=== PATIENT | female | born 1955 | race Caucasian/White ===

== ENCOUNTER 2020-06-19 10:35 | Observation (INO) ==
[2020-06-19 11:07] LABS: Basophils # 0.1 K/mcL (0.0-0.2); Basophils % 0.7 %; Eosinophils # 0.2 K/mcL (0.0-0.6); Eosinophils % 3.2 %; Hematocrit 41.2 % (35.3-44.9); Hemoglobin 13.1 g/dL (11.5-15.4); Immature Granulocytes % 0.1 % (0-4); Lymphocytes # 2.2 K/mcL (0.6-4.6); Lymphocytes % 31.5 %; Mean Corpuscular HGB Conc 31.8 g/dL (31.6-35.5); Mean Corpuscular Hemoglobin 28.7 pg (28.0-33.3); Mean Corpuscular Volume 90.4 fL (83.0-100.0); Mean Platelet Volume 9.7 fL (9.4-12.4); Monocytes # 0.5 K/mcL (0.0-1.3); Platelet Count 268 K/mcL (140-400); Red Blood Count 4.56 M/mcL (3.82-4.97); Red Cell Distribution Width 13.9 % (11.5-14.5); Segmented Neutrophils % 57.5 %; White Blood Count 6.9 K/mcL (4.3-11.1)
[2020-06-19 11:37] LABS: BUN/Creatinine Ratio 14 (6-26); Blood Urea Nitrogen 14 mg/dL (8-23); Carbon Dioxide 23 mEq/L (23-29); Chloride 102 mEq/L (98-107); Glucose 216 mg/dL (70-105); Osmolality,Calculated 289 (280-300); Potassium 4.3 mEq/L (3.5-5.1); Sodium 136 mEq/L (136-145); Troponin I < 0.03 ng/mL (< 0.04); eGFR For African Americans > 60 (> 60); eGFR For Non-African Americans 58 (> 60)
[2020-06-19] MEDS ORDERED: Isovue-370 500 ML BOTTLE IVP ONE (11:54)
[2020-06-19] MEDS ORDERED: Famotidine 20 MG/2 ML VIAL IVP ONE (11:54)
[2020-06-19] MEDS ORDERED: Aspirin 325 MG TABLET PO ONE (15:30)
[2020-06-19] MEDS ORDERED: Naloxone 0.4 MG/ML INJ IVP PRN (15:43)
[2020-06-19] MEDS ORDERED: Perflutren Lipid Microsphere 1.3 ML in 0.9 % Sodium Chloride 8.7 ML IVP PRN (15:46)
[2020-06-19] MEDS ORDERED: Ondansetron 4 MG/2 ML VIAL IVP PRN ×2 (15:47→17:22)
[2020-06-19] MEDS ORDERED: Nitroglycerin 0.4 MG TAB.SUBL SL PRN ×2 (15:47→17:22)
[2020-06-19] MEDS ORDERED: Morphine Sulfate 2 MG/ML SYRINGE IVP PRN ×2 (16:16→17:22)
[2020-06-19 16:37] LABS: Estimated Average Glucose 217 mg/dl; Hemoglobin A1C 9.2 %
[2020-06-19 16:52] LABS: Alanine Aminotransferase 34 Units/L (7-52); Albumin 3.9 g/dL (3.5-5.7); Albumin/Globulin Ratio 1.1 (1.1-2.2); Alkaline Phosphatase 50 Units/L (34-104); Aspartate Amino Transferase 45 Units/L (13-39); Bilirubin,Indirect 0.4 mg/dL (0.0-1.0); Bilirubin,Total 0.4 mg/dL (0.3-1.0); Cholesterol 209 mg/dL (< 200); Globulin 3.6 g/dL (2.4-3.5); HDL Cholesterol 42 mg/dL (40-59); LDL Cholesterol,Calculated 125 mg/dL (< 100); Lipase 40 Units/L (11-82); Total Protein 7.5 g/dL (6.4-8.9); Triglycerides 211 mg/dL (< 150); Troponin I < 0.03 ng/mL (< 0.04)
[2020-06-19] MEDS ORDERED: Insulin LISPRO 300 UNITS/3 ML VIAL SUBQ SCH ×2 (17:00→21:00)
[2020-06-19] MEDS ORDERED: *HR* Dextrose 50 % in Water (Vial) 50 ML VIAL IVP PRN (17:22)
[2020-06-19] MEDS ORDERED: D5% in Water 1,000 ML IVC PRN (17:22)
[2020-06-19] MEDS ORDERED: Dextrose Gel 15 GM/37.5 ML TUBE PO PRN ×2 (17:22)
[2020-06-19] MEDS ORDERED: *HR* Heparin 5,000 UNIT/ML VIAL SQ SCH (18:00)
[2020-06-19 19:40] LABS: Adenovirus Not Detected (Not Detect); Bordetella Pertussis Not Detected (Not Detect); Chlamydophila pneumoniae Not Detected (Not Detect); Coronavirus 229E Not Detected (Not Detect); Coronavirus HKU1 Not Detected (Not Detect); Coronavirus NL63 Not Detected (Not Detect); Coronavirus OC43 Not Detected (Not Detect); Human Metapneumovirus Not Detected (Not Detect); Human Rhinovirus/Enterovirus Not Detected (Not Detect); Influenza A Subtype 2009 H1 Not Detected (Not Detect); Influenza B Not Detected (Not Detect); Mycoplasma pneumoniae Not Detected (Not Detect); Parainfluenza Virus 1 Not Detected (Not Detect); Parainfluenza Virus 2 Not Detected (Not Detect); Parainfluenza Virus 3 Not Detected (Not Detect); Parainfluenza Virus 4 Not Detected (Not Detect); Respiratory Syncytial Virus Not Detected (Not Detect); SARS-CoV-2 Not Detected (Not Detect)
[2020-06-19] MEDS ORDERED: Ipratropium/Albuterol Neb 3 ML IH ONE (20:20)
[2020-06-19] MEDS ORDERED: Ipratropium/Albuterol Neb 3 ML ONE (20:25)
[2020-06-19] MEDS: Insulin LISPRO 300 UNITS/3 ML VIAL SUBQ SCH (21:15)
[2020-06-19] MEDS: *HR* Heparin 5,000 UNIT/ML VIAL SQ SCH (21:16)
[2020-06-20] MEDS: Ipratropium/Albuterol Neb 3 ML IH PRN ×4 (01:18→23:10)
[2020-06-20] MEDS: *HR* Heparin 5,000 UNIT/ML VIAL SQ SCH ×3 (05:39→21:37)
[2020-06-20] MEDS ORDERED: Regadenoson 0.4 MG/5 ML SYRINGE IVP ONE (06:31)
[2020-06-20] MEDS ORDERED: lisinopriL 5 MG TABLET PO SCH (09:00)
[2020-06-20] MEDS ORDERED: Perflutren Lipid Microsphere 1.3 ML in 0.9 % Sodium Chloride 8.7 ML IVP PRN (09:18)
[2020-06-20 11:09] LABS: Hematocrit 38.8 % (35.3-44.9); Hemoglobin 12.4 g/dL (11.5-15.4); Mean Corpuscular Hemoglobin 28.8 pg (28.0-33.3); Mean Platelet Volume 10.2 fL (9.4-12.4); Platelet Count 287 K/mcL (140-400); Red Blood Count 4.31 M/mcL (3.82-4.97)
[2020-06-20] MEDS: Aspirin 81 MG TAB.CHEW PO SCH (11:38)
[2020-06-20] MEDS: Insulin LISPRO 300 UNITS/3 ML VIAL SUBQ SCH ×4 (11:38→20:13)
[2020-06-20 11:51] LABS: Albumin 3.8 g/dL (3.5-5.7); Bilirubin,Indirect 0.4 mg/dL (0.0-1.0); Bilirubin,Total 0.4 mg/dL (0.3-1.0); Calcium 9.2 mg/dL (8.6-10.3); Globulin 3.7 g/dL (2.4-3.5); Potassium 4.6 mEq/L (3.5-5.1); Total Protein 7.5 g/dL (6.4-8.9)
[2020-06-20] MEDS ORDERED: 0.9 % Sodium Chloride 1,000 ML IVC SCH (12:30)
[2020-06-20] MEDS: predniSONE 20 MG TABLET PO SCH (17:11)
[2020-06-20] MEDS ORDERED: Acetaminophen 325 MG TABLET PO PRN (17:21)
[2020-06-20] MEDS ORDERED: *HR* LORazepam 2 MG/ML VIAL IVP ONE (21:13)
[2020-06-21] MEDS: Ipratropium/Albuterol Neb 3 ML IH PRN ×2 (04:00→08:01)
[2020-06-21] MEDS ORDERED: Acetaminophen IV 1,000 MG/100 ML BAG IVPB ONE (04:09)
[2020-06-21] MEDS: *HR* Heparin 5,000 UNIT/ML VIAL SQ SCH ×2 (05:17→12:27)
[2020-06-21 06:37] LABS: Basophils % 0.1 %; Hematocrit 36.7 % (35.3-44.9); Hemoglobin 11.6 g/dL (11.5-15.4); Immature Granulocytes % 1.1 % (0-4); Lymphocytes # 1.2 K/mcL (0.6-4.6); Lymphocytes % 10.4 %; Mean Corpuscular HGB Conc 31.6 g/dL (31.6-35.5); Mean Corpuscular Hemoglobin 29.1 pg (28.0-33.3); Mean Platelet Volume 10.2 fL (9.4-12.4); Monocytes # 0.3 K/mcL (0.0-1.3); Monocytes % 2.9 %; Neutrophils # 9.7 K/mcL (1.6-8.9); Platelet Count 250 K/mcL (140-400); Red Blood Count 3.99 M/mcL (3.82-4.97); Red Cell Distribution Width 14.2 % (11.5-14.5); Segmented Neutrophils % 85.5 %; White Blood Count 11.3 K/mcL (4.3-11.1)
[2020-06-21 06:54] LABS: BUN/Creatinine Ratio 23 (6-26); Blood Urea Nitrogen 23 mg/dL (8-23); Calcium 8.7 mg/dL (8.6-10.3); Carbon Dioxide 21 mEq/L (23-29); Chloride 102 mEq/L (98-107); Glucose 346 mg/dL (70-105); Osmolality,Calculated 293 (280-300); Potassium 4.4 mEq/L (3.5-5.1); Sodium 133 mEq/L (136-145); eGFR For African Americans > 60 (> 60); eGFR For Non-African Americans 56 (> 60)
[2020-06-21] MEDS: Aspirin 81 MG TAB.CHEW PO SCH (08:56)
[2020-06-21] MEDS: predniSONE 20 MG TABLET PO SCH (08:57)
[2020-06-21] MEDS: Insulin LISPRO 300 UNITS/3 ML VIAL SUBQ SCH ×2 (09:02→17:28)
[2020-06-21] MEDS ORDERED: Insulin LISPRO 300 UNITS/3 ML VIAL SUBQ SCH ×2 (12:00→21:00)
[2020-06-21] MEDS ORDERED: *HR* Midazolam HCl 2 MG/2 ML VIAL ONE (13:07)
[2020-06-21] MEDS ORDERED: 0.9 % Sodium Chloride 2,000 ML ONE (13:07)
[2020-06-21] MEDS ORDERED: *HR* FentaNYL (PF) 100 MCG/2 ML VIAL ONE (13:07)
[2020-06-21] MEDS ORDERED: Nitroglycerin 1,000 MCG/5 ML VIAL IV ONE (13:08)
[2020-06-21] MEDS ORDERED: *HR* Heparin 10,000 UNIT/10 ML VIAL ONE (13:08)
[2020-06-21] MEDS ORDERED: ISOVUE-370 200 ML INFUS..BTL ONE (13:08)
[2020-06-21] MEDS ORDERED: Heparin 1,000 UNITS/500 mL 500 ML ONE (13:08)
[2020-06-21] MEDS ORDERED: methylPREDNISolone 125 MG/2 ML VIAL ONE (13:20)
[2020-06-21] MEDS ORDERED: 0.9 % Sodium Chloride 1,000 ML IVC SCH (15:30)
[2020-06-22 05:14] LABS: Basophils % 0.1 %; Hematocrit 36.6 % (35.3-44.9); Hemoglobin 11.7 g/dL (11.5-15.4); Lymphocytes # 1.3 K/mcL (0.6-4.6); Lymphocytes % 11.1 %; Mean Corpuscular Volume 90.6 fL (83.0-100.0); Mean Platelet Volume 10.4 fL (9.4-12.4); Monocytes # 0.7 K/mcL (0.0-1.3); Neutrophils # 9.6 K/mcL (1.6-8.9); Platelet Count 237 K/mcL (140-400); Red Blood Count 4.04 M/mcL (3.82-4.97); Red Cell Distribution Width 14.3 % (11.5-14.5); Segmented Neutrophils % 81.8 %; White Blood Count 11.8 K/mcL (4.3-11.1)
[2020-06-22 05:28] LABS: BUN/Creatinine Ratio 30 (6-26); Blood Urea Nitrogen 28 mg/dL (8-23); Calcium 8.5 mg/dL (8.6-10.3); Carbon Dioxide 22 mEq/L (23-29); Chloride 103 mEq/L (98-107); Glucose 289 mg/dL (70-105); Osmolality,Calculated 294 (280-300); Potassium 4.6 mEq/L (3.5-5.1); Sodium 134 mEq/L (136-145); eGFR For African Americans > 60 (> 60); eGFR For Non-African Americans > 60 (> 60)
[2020-06-22 07:48] VITALS: BP 157/76
[2020-06-22] MEDS: Aspirin 81 MG TAB.CHEW PO SCH (08:03)
[2020-06-22] MEDS: Insulin LISPRO 300 UNITS/3 ML VIAL SUBQ SCH (08:04)
[2020-06-23] MEDS ORDERED: *HR* Metformin 500 MG TABLET PO SCH (08:00)
== END 2020-06-22 10:42 | disposition home or self-care (01) ==
LOC: 3BNU 10:35 → EMEROOARM 10:35 → SUATTDRO 15:42 → EMEROOARM 17:07
PROVIDERS: ADMIT Student in an Organized Health Care Education/Training Program; ATTEND Nurse Practitioner

== ENCOUNTER 2020-09-14 17:46 | Observation (INO) ==
[2020-09-14] MEDS: 0.9 % Sodium Chloride 1,000 ML IVC SCH ×2 (18:53→20:34)
[2020-09-14 19:01] LABS: Basophils # 0.1 K/mcL (0.0-0.2); Basophils % 0.5 %; Eosinophils # 0.2 K/mcL (0.0-0.6); Eosinophils % 1.4 %; Hematocrit 40.5 % (35.3-44.9); Immature Granulocytes % 0.4 % (0-4); Lymphocytes % 14.1 %; Mean Corpuscular HGB Conc 32.1 g/dL (31.6-35.5); Mean Corpuscular Hemoglobin 29.1 pg (28.0-33.3); Mean Corpuscular Volume 90.6 fL (83.0-100.0); Mean Platelet Volume 9.9 fL (9.4-12.4); Monocytes # 1.2 K/mcL (0.0-1.3); Monocytes % 8.5 %; Neutrophils # 10.6 K/mcL (1.6-8.9); Platelet Count 347 K/mcL (140-400); Red Blood Count 4.47 M/mcL (3.82-4.97); Red Cell Distribution Width 12.7 % (11.5-14.5); Segmented Neutrophils % 75.1 %; White Blood Count 14.1 K/mcL (4.3-11.1)
[2020-09-14 19:18] LABS: Alanine Aminotransferase 19 Units/L (7-52); Albumin 3.9 g/dL (3.5-5.7); Alkaline Phosphatase 56 Units/L (34-104); Aspartate Amino Transferase 23 Units/L (13-39); BUN/Creatinine Ratio 12 (6-26); Bilirubin,Total 0.4 mg/dL (0.3-1.0); Blood Urea Nitrogen 12 mg/dL (8-23); Carbon Dioxide 27 mEq/L (23-29); Chloride 97 mEq/L (98-107); Globulin 4.1 g/dL (2.4-3.5); Glucose 171 mg/dL (70-105); Lipase 30 Units/L (11-82); Osmolality,Calculated 282 (280-300); Potassium 4.1 mEq/L (3.5-5.1); Sodium 134 mEq/L (136-145); eGFR For African Americans > 60 (> 60); eGFR For Non-African Americans 55 (> 60)
[2020-09-14] MEDS ORDERED: ceFAZolin 1,000 MG in Water for inj. (sterile) 10 ML IVP ONE (19:37)
[2020-09-14] MEDS ORDERED: Isovue-370 500 ML BOTTLE IVP ONE (19:38)
[2020-09-14] MEDS ORDERED: 0.9 % Sodium Chloride 1,000 ML IVC SCH (19:45)
[2020-09-14] MEDS ORDERED: methylPREDNISolone 125 MG/2 ML VIAL IVP ONE (20:25)
[2020-09-14 20:57] LABS: Bilirubin,Urine Negative (Negative); Blood,Urine Negative (Negative); Clarity,Urine Clear (Clear); Color,Urine Light-Yellow (Yellow); Glucose,Urine (UA) Normal (Normal); Ketones,Urine Negative (Negative); Leukocyte Esterase,Urine Negative (Negative); Nitrite,Urine Negative (Negative); PH,Urine 5.5 pH Units (5.0-8.0); Protein,Urine Negative (Neg-Trace); Specific Gravity,Urine 1.015 (1.010-1.025); Urobilinogen,Urine Normal (Normal)
[2020-09-15] MEDS ORDERED: Naloxone 0.4 MG/ML INJ IVP PRN ×2 (00:38→22:54)
[2020-09-15] MEDS ORDERED: Acetaminophen 325 MG TABLET PO PRN ×2 (00:38→22:54)
[2020-09-15] MEDS ORDERED: *HR* OxyCODONE Immed Rel 5 MG TABLET PO PRN ×2 (00:38→22:54)
[2020-09-15] MEDS ORDERED: Ondansetron 4 MG/2 ML VIAL IVP PRN ×3 (00:38→22:54)
[2020-09-15] MEDS ORDERED: *HR* Dextrose 50 % in Water (Vial) 50 ML VIAL IVP PRN ×2 (00:45→22:54)
[2020-09-15] MEDS ORDERED: *HR* Heparin 5,000 UNIT/ML VIAL SQ SCH (00:45)
[2020-09-15] MEDS ORDERED: Dextrose Gel 15 GM/37.5 ML TUBE PO PRN ×4 (00:45→22:54)
[2020-09-15] MEDS ORDERED: D5% in Water 1,000 ML IVC PRN ×2 (00:45→22:54)
[2020-09-15] MEDS ORDERED: Vancomycin (wt based) 1,000 MG VIAL IVPB SCH (01:00)
[2020-09-15 01:38] LABS: Basophils % 0.3 %; Eosinophils % 0.1 %; Hematocrit 39.6 % (35.3-44.9); Hemoglobin 12.4 g/dL (11.5-15.4); Immature Granulocytes % 0.8 % (0-4); Lymphocytes # 1.2 K/mcL (0.6-4.6); Lymphocytes % 8.6 %; Mean Corpuscular HGB Conc 31.3 g/dL (31.6-35.5); Mean Corpuscular Volume 92.5 fL (83.0-100.0); Mean Platelet Volume 9.9 fL (9.4-12.4); Monocytes # 0.2 K/mcL (0.0-1.3); Monocytes % 1.4 %; Neutrophils # 12.8 K/mcL (1.6-8.9); Platelet Count 307 K/mcL (140-400); Red Blood Count 4.28 M/mcL (3.82-4.97); Segmented Neutrophils % 88.8 %; White Blood Count 14.3 K/mcL (4.3-11.1)
[2020-09-15 01:44] LABS: Estimated Average Glucose 206 mg/dl; Hemoglobin A1C 8.8 %
[2020-09-15 01:54] LABS: BUN/Creatinine Ratio 12 (6-26); Blood Urea Nitrogen 12 mg/dL (8-23); Calcium 7.9 mg/dL (8.6-10.3); Carbon Dioxide 23 mEq/L (23-29); Chloride 103 mEq/L (98-107); Glucose 378 mg/dL (70-105); Magnesium 1.9 mg/dL (1.6-2.6); Osmolality,Calculated 293 (280-300); Phosphorous 1.9 mg/dL (2.7-4.5); Potassium 4.3 mEq/L (3.5-5.1); Sodium 134 mEq/L (136-145); eGFR For African Americans > 60 (> 60); eGFR For Non-African Americans 55 (> 60)
[2020-09-15] MEDS: 0.9 % Sodium Chloride 1,000 ML IVC SCH ×2 (02:00→07:28)
[2020-09-15] MEDS ORDERED: Insulin DETEMIR 100 UNIT/ML X5UNITS SUBQ SCH (02:45)
[2020-09-15 03:30] LABS: C-Reactive Protein 54 mg/L (Less than 10)
[2020-09-15] MEDS: Cefepime HCl 2,000 MG in Water for inj. (sterile) 20 ML IVP SCH ×2 (07:28→15:42)
[2020-09-15] MEDS: MetroNIDAZOLE 500 MG/100 ML 500 MG/100 ML BAG IVPB SCH ×2 (07:28→15:42)
[2020-09-15] MEDS: Insulin LISPRO 300 UNITS/3 ML VIAL SUBQ SCH ×3 (07:42→16:51)
[2020-09-15] MEDS ORDERED: Vancomycin 1,250 MG/262.5 ML IV.SOLN IVPB SCH (08:00)
[2020-09-15] MEDS: *HR* Metformin 500 MG TABLET PO SCH ×2 (09:02→15:42)
[2020-09-15] MEDS ORDERED: Famotidine 20 MG/2 ML VIAL IVP ONE (19:42)
[2020-09-15] MEDS ORDERED: Lidocaine -MPF 4% 5 ML AMPUL ONE (20:52)
[2020-09-15] MEDS ORDERED: Ondansetron 4 MG/2 ML VIAL ONE ×2 (20:52→21:38)
[2020-09-15] MEDS ORDERED: *HR* Propofol 200 MG/20 ML VIAL IVP ONE (20:52)
[2020-09-15] MEDS ORDERED: Lidocaine -MPF 2% 2 ML VIAL ONE (20:52)
[2020-09-15] MEDS ORDERED: *HR* FentaNYL (PF) 100 MCG/2 ML VIAL ONE (20:52)
[2020-09-15] MEDS ORDERED: Insulin LISPRO 300 UNITS/3 ML VIAL SUBQ SCH (21:00)
[2020-09-15] MEDS ORDERED: EPHEDrine 50 MG/ML VIAL ONE (21:24)
[2020-09-15] MEDS ORDERED: Albuterol 2.5 MG/3 ML NEBULIZER IH ONE (21:56)
[2020-09-15] MEDS ORDERED: Albuterol 2.5 MG/3 ML NEBULIZER ONE (21:58)
[2020-09-15] MEDS: Ketorolac 15 MG/ML VIAL IVP SCH (23:21)
[2020-09-16] MEDS ORDERED: Cefepime HCl 2,000 MG in Water for inj. (sterile) 20 ML IVP SCH
[2020-09-16] MEDS ORDERED: MetroNIDAZOLE 500 MG/100 ML 500 MG/100 ML BAG IVPB SCH
[2020-09-16 01:58] LABS: Basophils % 0.1 %; Hematocrit 34.3 % (35.3-44.9); Hemoglobin 10.9 g/dL (11.5-15.4); Immature Granulocytes % 0.9 % (0-4); Lymphocytes # 1.6 K/mcL (0.6-4.6); Lymphocytes % 8.9 %; Mean Corpuscular HGB Conc 31.8 g/dL (31.6-35.5); Mean Corpuscular Hemoglobin 28.9 pg (28.0-33.3); Mean Platelet Volume 10.7 fL (9.4-12.4); Monocytes # 1.3 K/mcL (0.0-1.3); Monocytes % 7.3 %; Neutrophils # 15.1 K/mcL (1.6-8.9); Platelet Count 279 K/mcL (140-400); Red Blood Count 3.77 M/mcL (3.82-4.97); Red Cell Distribution Width 12.9 % (11.5-14.5); Segmented Neutrophils % 82.8 %; White Blood Count 18.2 K/mcL (4.3-11.1)
[2020-09-16 02:04] LABS: BUN/Creatinine Ratio 16 (6-26); Blood Urea Nitrogen 14 mg/dL (8-23); Calcium 7.7 mg/dL (8.6-10.3); Carbon Dioxide 21 mEq/L (23-29); Chloride 110 mEq/L (98-107); Glucose 210 mg/dL (70-105); Osmolality,Calculated 295 (280-300); Potassium 4.1 mEq/L (3.5-5.1); Sodium 139 mEq/L (136-145); eGFR For African Americans > 60 (> 60); eGFR For Non-African Americans > 60 (> 60)
[2020-09-16 04:42] VITALS: TEMP 97.5
[2020-09-16] MEDS: Ketorolac 15 MG/ML VIAL IVP SCH (05:08)
[2020-09-16] MEDS ORDERED: Insulin LISPRO 300 UNITS/3 ML VIAL SUBQ SCH ×2 (07:30→21:00)
[2020-09-16 07:41] VITALS: BP 116/63; PULSE 58; O2SAT 97
[2020-09-16] MEDS ORDERED: Vancomycin 1,250 MG/262.5 ML IV.SOLN IVPB SCH (08:00)
[2020-09-16] MEDS ORDERED: *HR* Metformin 500 MG TABLET PO SCH (08:00)
[2020-09-16] MEDS ORDERED: Insulin DETEMIR 100 UNIT/ML X5UNITS SUBQ SCH (21:00)
== END 2020-09-16 13:25 | disposition home or self-care (01) ==
LOC: 3ANU 17:46 → EMEROOARM 17:46 → 3ANU 09-15 00:57
PROVIDERS: ADMIT Student in an Organized Health Care Education/Training Program; ATTEND Student in an Organized Health Care Education/Training Program

== ENCOUNTER 2020-09-18 09:38 | Inpatient (IN) ==
[2020-09-18] MEDS ORDERED: Ketorolac 15 MG/ML VIAL IVP ONE (11:59)
[2020-09-18] MEDS ORDERED: Ringers Solution, Lactated 1,000 ML IVC ONE (11:59)
[2020-09-18] MEDS ORDERED: Ondansetron 4 MG/2 ML VIAL IVP ONE (11:59)
[2020-09-18 12:24] LABS: Basophils # 0.1 K/mcL (0.0-0.2); Basophils % 0.8 %; Eosinophils # 0.3 K/mcL (0.0-0.6); Eosinophils % 3.4 %; Hematocrit 35.1 % (35.3-44.9); Hemoglobin 11.5 g/dL (11.5-15.4); Immature Granulocytes % 2.4 % (0-4); Lymphocytes # 2.1 K/mcL (0.6-4.6); Mean Corpuscular HGB Conc 32.8 g/dL (31.6-35.5); Mean Corpuscular Hemoglobin 30.2 pg (28.0-33.3); Mean Corpuscular Volume 92.1 fL (83.0-100.0); Mean Platelet Volume 10.2 fL (9.4-12.4); Monocytes # 0.5 K/mcL (0.0-1.3); Monocytes % 5.4 %; Neutrophils # 5.9 K/mcL (1.6-8.9); Nucleated Red Blood Cells 0.2 /100 WBC (0); Platelet Count 311 K/mcL (140-400); Red Blood Count 3.81 M/mcL (3.82-4.97); Red Cell Distribution Width 13.4 % (11.5-14.5); White Blood Count 9.1 K/mcL (4.3-11.1)
[2020-09-18 12:31] LABS: Alanine Aminotransferase 40 Units/L (7-52); Albumin 3.3 g/dL (3.5-5.7); Alkaline Phosphatase 50 Units/L (34-104); Aspartate Amino Transferase 49 Units/L (13-39); BUN/Creatinine Ratio 14 (6-26); Bilirubin,Direct 0.1 mg/dL (0.0-0.2); Bilirubin,Indirect 0.2 mg/dL (0.0-1.0); Bilirubin,Total 0.3 mg/dL (0.3-1.0); Blood Urea Nitrogen 15 mg/dL (8-23); Calcium 8.9 mg/dL (8.6-10.3); Carbon Dioxide 26 mEq/L (23-29); Chloride 105 mEq/L (98-107); Globulin 3.3 g/dL (2.4-3.5); Glucose 180 mg/dL (70-105); Osmolality,Calculated 295 (280-300); Potassium 3.9 mEq/L (3.5-5.1); Sodium 140 mEq/L (136-145); Total Protein 6.6 g/dL (6.4-8.9); Troponin I 0.27 ng/mL (< 0.04); eGFR For African Americans > 60 (> 60); eGFR For Non-African Americans 52 (> 60)
[2020-09-18] MEDS ORDERED: Aspirin 81 MG TAB.CHEW PO STA (12:43)
[2020-09-18] MEDS ORDERED: *HR* Heparin 5,000 UNIT/ML VIAL IVP ONE (13:26)
[2020-09-18] MEDS ORDERED: *HR* Heparin 5,000 UNIT/ML VIAL IVP PRN ×2 (13:26)
[2020-09-18] MEDS ORDERED: Naloxone 0.4 MG/ML INJ IVP PRN (14:29)
[2020-09-18] MEDS ORDERED: D5% in Water 1,000 ML IVC PRN (14:29)
[2020-09-18] MEDS ORDERED: Dextrose Gel 15 GM/37.5 ML TUBE PO PRN ×2 (14:29)
[2020-09-18] MEDS ORDERED: Ondansetron 4 MG/2 ML VIAL IVP PRN (14:29)
[2020-09-18] MEDS ORDERED: *HR* Dextrose 50 % in Water (Vial) 50 ML VIAL IVP PRN (14:29)
[2020-09-18] MEDS ORDERED: Nitroglycerin 0.4 MG TAB.SUBL SL PRN (14:54)
[2020-09-18] MEDS: Acetaminophen 325 MG TABLET PO PRN ×2 (15:24→23:22)
[2020-09-18] MEDS ORDERED: Perflutren Lipid Microsphere 1.3 ML in 0.9 % Sodium Chloride 8.7 ML IVP PRN (15:55)
[2020-09-18] MEDS: Heparin 25,000UNIT/250ML 1/2NS 25,000 UNIT/250 ML IV.SOLN IVC SCH (16:43)
[2020-09-18] MEDS: Insulin LISPRO 300 UNITS/3 ML VIAL SUBQ SCH (16:44)
[2020-09-18 17:05] LABS: Hematocrit 33.8 % (35.3-44.9); Hemoglobin 10.7 g/dL (11.5-15.4); Mean Corpuscular HGB Conc 31.7 g/dL (31.6-35.5); Mean Corpuscular Hemoglobin 28.8 pg (28.0-33.3); Mean Corpuscular Volume 91.1 fL (83.0-100.0); Mean Platelet Volume 9.7 fL (9.4-12.4); Platelet Count 267 K/mcL (140-400); Red Blood Count 3.71 M/mcL (3.82-4.97); Red Cell Distribution Width 13.2 % (11.5-14.5)
[2020-09-18 17:11] LABS: Heparin anti-factor XA UFH < 0.04 IU/mL (0.30-0.70)
[2020-09-18 17:12] LABS: INR 1.1; Prothrombin Time 12.9 Seconds (9.4-12.1)
[2020-09-18] MEDS: Doxycycline 100 MG CAPSULE PO SCH (20:55)
[2020-09-18] MEDS: Cefdinir 300 MG CAPSULE PO SCH (20:56)
[2020-09-19 05:55] LABS: Basophils # 0.1 K/mcL (0.0-0.2); Basophils % 0.6 %; Eosinophils # 0.5 K/mcL (0.0-0.6); Eosinophils % 4.3 %; Hemoglobin 10.6 g/dL (11.5-15.4); Immature Granulocytes % 2.4 % (0-4); Lymphocytes # 3.6 K/mcL (0.6-4.6); Lymphocytes % 32.6 %; Mean Corpuscular HGB Conc 32.1 g/dL (31.6-35.5); Mean Corpuscular Hemoglobin 29.8 pg (28.0-33.3); Mean Corpuscular Volume 92.7 fL (83.0-100.0); Mean Platelet Volume 10.5 fL (9.4-12.4); Monocytes # 0.5 K/mcL (0.0-1.3); Monocytes % 4.7 %; Neutrophils # 6.1 K/mcL (1.6-8.9); Nucleated Red Blood Cells 0.2 /100 WBC (0); Platelet Count 293 K/mcL (140-400); Red Blood Count 3.56 M/mcL (3.82-4.97); Red Cell Distribution Width 13.4 % (11.5-14.5); Segmented Neutrophils % 55.4 %
[2020-09-19 06:54] LABS: BUN/Creatinine Ratio 17 (6-26); Blood Urea Nitrogen 17 mg/dL (8-23); Calcium 8.2 mg/dL (8.6-10.3); Carbon Dioxide 25 mEq/L (23-29); Chloride 106 mEq/L (98-107); Chol/HDL Ratio 3.6 (0-4.9); Cholesterol 98 mg/dL (< 200); Glucose 152 mg/dL (70-105); HDL Cholesterol 27 mg/dL (40-59); LDL Cholesterol,Calculated 37 mg/dL (< 100); Magnesium 1.7 mg/dL (1.6-2.6); Osmolality,Calculated 295 (280-300); Potassium 3.9 mEq/L (3.5-5.1); Sodium 140 mEq/L (136-145); Triglycerides 170 mg/dL (< 150); eGFR For African Americans > 60 (> 60); eGFR For Non-African Americans 55 (> 60)
[2020-09-19] MEDS: Insulin LISPRO 300 UNITS/3 ML VIAL SUBQ SCH ×3 (07:56→16:41)
[2020-09-19] MEDS: Cefdinir 300 MG CAPSULE PO SCH ×2 (07:57→20:48)
[2020-09-19] MEDS: Doxycycline 100 MG CAPSULE PO SCH ×2 (07:57→20:48)
[2020-09-19] MEDS: Aspirin 81 MG TAB.CHEW PO SCH (07:58)
[2020-09-19 08:16] LABS: Estimated Average Glucose 209 mg/dl; Hemoglobin A1C 8.9 %
[2020-09-19] MEDS: lisinopriL 5 MG TABLET PO SCH (09:45)
[2020-09-19] MEDS: Heparin 25,000UNIT/250ML 1/2NS 25,000 UNIT/250 ML IV.SOLN IVC SCH (14:44)
[2020-09-19] MEDS: Acetaminophen 325 MG TABLET PO PRN (14:52)
[2020-09-20 06:38] LABS: Basophils # 0.1 K/mcL (0.0-0.2); Eosinophils # 0.4 K/mcL (0.0-0.6); Hematocrit 34.4 % (35.3-44.9); Hemoglobin 10.9 g/dL (11.5-15.4); Immature Granulocytes % 4.7 % (0-4); Lymphocytes % 27.4 %; Mean Corpuscular HGB Conc 31.7 g/dL (31.6-35.5); Mean Corpuscular Hemoglobin 29.3 pg (28.0-33.3); Mean Corpuscular Volume 92.5 fL (83.0-100.0); Mean Platelet Volume 9.8 fL (9.4-12.4); Monocytes # 0.6 K/mcL (0.0-1.3); Monocytes % 5.8 %; Neutrophils # 6.3 K/mcL (1.6-8.9); Nucleated Red Blood Cells 0.4 /100 WBC (0); Platelet Count 312 K/mcL (140-400); Red Blood Count 3.72 M/mcL (3.82-4.97); Red Cell Distribution Width 13.3 % (11.5-14.5); Segmented Neutrophils % 57.1 %; White Blood Count 11.1 K/mcL (4.3-11.1)
[2020-09-20 07:05] LABS: % Iron Saturation 28 % (15-50); BUN/Creatinine Ratio 15 (6-26); Blood Urea Nitrogen 14 mg/dL (8-23); Calcium 8.5 mg/dL (8.6-10.3); Carbon Dioxide 30 mEq/L (23-29); Chloride 104 mEq/L (98-107); Glucose 144 mg/dL (70-105); Iron 69 mcg/dL (50-170); Magnesium 1.8 mg/dL (1.6-2.6); Osmolality,Calculated 295 (280-300); Phosphorous 4.1 mg/dL (2.7-4.5); Potassium 3.8 mEq/L (3.5-5.1); Sodium 141 mEq/L (136-145); Transferrin 173 mg/dL (203-362); eGFR For African Americans > 60 (> 60); eGFR For Non-African Americans > 60 (> 60)
[2020-09-20 07:14] VITALS: BP 153/89; PULSE 56; TEMP 97.8; O2SAT 95
[2020-09-20 07:14] LABS: Ferritin 260 ng/mL (10-120)
[2020-09-20 07:16] LABS: Folate 9.7 ng/mL (3.0-16.0)
[2020-09-20] MEDS: Insulin LISPRO 300 UNITS/3 ML VIAL SUBQ SCH (07:27)
[2020-09-20] MEDS: Cefdinir 300 MG CAPSULE PO SCH (08:11)
[2020-09-20] MEDS: Doxycycline 100 MG CAPSULE PO SCH (08:11)
[2020-09-20] MEDS: lisinopriL 5 MG TABLET PO SCH (08:11)
[2020-09-20] MEDS ORDERED: lisinopriL 5 MG TABLET PO ONE (08:13)
[2020-09-20] MEDS: Acetaminophen 325 MG TABLET PO PRN (08:14)
[2020-09-20] MEDS: Aspirin 81 MG TAB.CHEW PO SCH (08:14)
[2020-09-20] MEDS ORDERED: Spironolactone 25 MG TABLET PO SCH (09:00)
[2020-09-21] MEDS ORDERED: lisinopriL 5 MG TABLET PO SCH (09:00)
== END 2020-09-20 10:50 | disposition home or self-care (01) | DRG 280 ==
LOC: EMEROOARM 09:38 → 3BNU 09:38 → SUATTDRO 13:47 → 3BNU 13:57
PROVIDERS: ADMIT Internal Medicine; ATTEND Internal Medicine

== ENCOUNTER 2021-10-27 14:36 | Inpatient (IN) ==
[2021-10-27] MEDS ORDERED: Ondansetron 4 MG/2 ML VIAL IVP ONE (16:02)
[2021-10-27] MEDS ORDERED: methylPREDNISolone 125 MG/2 ML VIAL IVP ONE (16:06)
[2021-10-27] MEDS ORDERED: Iopamidol - 370 500 ML MLS IVP ONE (16:07)
[2021-10-27 18:07] LABS: Basophils % 0.2 %; Eosinophils # 0.1 K/mcL (0.0-0.6); Eosinophils % 0.5 %; Hematocrit 35.6 % (35.3-44.9); Hemoglobin 11.4 g/dL (11.5-15.4); Immature Granulocytes % 0.4 % (0-4); Lymphocytes # 1.2 K/mcL (0.6-4.6); Mean Corpuscular Volume 90.6 fL (83.0-100.0); Mean Platelet Volume 10.1 fL (9.4-12.4); Monocytes # 1.2 K/mcL (0.0-1.3); Monocytes % 9.1 %; Neutrophils # 10.4 K/mcL (1.6-8.9); Platelet Count 303 K/mcL (140-400); Red Blood Count 3.93 M/mcL (3.82-4.97); Red Cell Distribution Width 13.3 % (11.5-14.5); Segmented Neutrophils % 80.8 %; White Blood Count 12.9 K/mcL (4.3-11.1)
[2021-10-27] MEDS ORDERED: MetroNIDAZOLE 500 MG/100 ML 500 MG/100 ML BAG IVPB ONE (18:09)
[2021-10-27] MEDS ORDERED: 0.9 % Sodium Chloride 1,000 ML IVC ONE (19:14)
[2021-10-27] MEDS ORDERED: Ondansetron ODT 4 MG TAB.RAPDIS SL PRN (22:48)
[2021-10-27] MEDS ORDERED: Mag Hydrox/Al Hydrox/Simeth 30 ML UDC PO PRN (22:48)
[2021-10-27] MEDS ORDERED: Naloxone 0.4 MG/ML INJ IVP PRN (22:48)
[2021-10-27] MEDS ORDERED: Ringers Solution, Lactated 500 ML IVC ONE (22:59)
[2021-10-27] MEDS ORDERED: *HR* Dextrose 50 % in Water (Syg) 50 ML SYRINGE IVP PRN (23:11)
[2021-10-27] MEDS ORDERED: D5% in Water 1,000 ML IVC PRN (23:11)
[2021-10-27] MEDS ORDERED: Dextrose Gel 15 GM/37.5 ML TUBE PO PRN ×2 (23:11)
[2021-10-28] MEDS: Ringers Solution, Lactated 1,000 ML IVC SCH ×2 (00:01→12:38)
[2021-10-28] MEDS ORDERED: *HR* HYDROcodone/Acet 5/325 mg TABLET PO PRN (03:00)
[2021-10-28] MEDS: Sennosides/Docusate Sodium TABLET PO SCH ×3 (03:11→21:00)
[2021-10-28] MEDS ORDERED: Ringers Solution, Lactated 500 ML IVC ONE (03:18)
[2021-10-28 05:53] LABS: Hematocrit 35.2 % (35.3-44.9); Hemoglobin 11.4 g/dL (11.5-15.4); Mean Corpuscular HGB Conc 32.4 g/dL (31.6-35.5); Mean Corpuscular Hemoglobin 29.5 pg (28.0-33.3); Mean Corpuscular Volume 91.2 fL (83.0-100.0); Mean Platelet Volume 10.1 fL (9.4-12.4); Platelet Count 276 K/mcL (140-400); Red Blood Count 3.86 M/mcL (3.82-4.97); Red Cell Distribution Width 13.2 % (11.5-14.5); White Blood Count 12.3 K/mcL (4.3-11.1)
[2021-10-28 06:04] LABS: Albumin 3.3 g/dL (3.5-5.7); Albumin/Globulin Ratio 0.9 (1.1-2.2); Bilirubin,Total 0.3 mg/dL (0.3-1.0); Calcium 8.7 mg/dL (8.6-10.3); Globulin 3.7 g/dL (2.4-3.5); Magnesium 2.1 mg/dL (1.6-2.6); Phosphorous 3.4 mg/dL (2.7-4.5); Potassium 4.4 mEq/L (3.5-5.1)
[2021-10-28] MEDS ORDERED: Cefepime HCl 2,000 MG in 0.9 % Sodium Chloride 10 ML IVP SCH ×2 (08:00→16:00)
[2021-10-28] MEDS ORDERED: *HR* FentaNYL (PF) 100 MCG/2 ML VIAL ONE (08:23)
[2021-10-28] MEDS ORDERED: *HR* Propofol 200 MG/20 ML VIAL IVP ONE (08:24)
[2021-10-28] MEDS ORDERED: Ondansetron 4 MG/2 ML VIAL ONE (08:26)
[2021-10-28] MEDS ORDERED: Lidocaine -MPF 2% 5 ML VIAL ONE (08:26)
[2021-10-28] MEDS ORDERED: *HR* Succinylcholine 200 MG/10 ML VIAL IVP ONE (08:37)
[2021-10-28] MEDS ORDERED: Lidocaine HCL 4 ML Topical Solution (Laryng-O-Jet Kit Sterile Pak) TP ONE (08:37)
[2021-10-28] MEDS ORDERED: *HR* HYDROMORPHONE 2 MG/ML VIAL ONE (10:14)
[2021-10-28] MEDS ORDERED: Sugammadex Sodium 200 MG/2 ML VIAL IV ONE (10:18)
[2021-10-28] MEDS: *HR* HYDROmorphone PF 0.5 MG/0.5 ML SYRINGE IVP PRN ×4 (10:55→11:27)
[2021-10-28] MEDS ORDERED: Ipratropium/Albuterol Neb 3 ML ONE (11:06)
[2021-10-28] MEDS ORDERED: Ipratropium/Albuterol Neb 3 ML IH ONE (11:11)
[2021-10-28] MEDS ORDERED: Vancomycin 1,500 MG/265 ML IV.SOLN IVPB SCH (12:00)
[2021-10-28] MEDS ORDERED: Naloxone 0.4 MG/ML INJ IVP PRN (12:35)
[2021-10-28] MEDS ORDERED: *HR* Dextrose 50 % in Water (Syg) 50 ML SYRINGE IVP PRN (12:35)
[2021-10-28] MEDS ORDERED: Ondansetron ODT 4 MG TAB.RAPDIS SL PRN (12:35)
[2021-10-28] MEDS ORDERED: Dextrose Gel 15 GM/37.5 ML TUBE PO PRN ×2 (12:35)
[2021-10-28] MEDS ORDERED: D5% in Water 1,000 ML IVC PRN (12:35)
[2021-10-28] MEDS ORDERED: Mag Hydrox/Al Hydrox/Simeth 30 ML UDC PO PRN (12:35)
[2021-10-28] MEDS: MetroNIDAZOLE 500 MG/100 ML 500 MG/100 ML BAG IVPB SCH ×3 (13:30→23:13)
[2021-10-28] MEDS ORDERED: metroNIDAZOLE 500 MG TABLET PO SCH ×2 (15:00)
[2021-10-28] MEDS: *HR* HYDROcodone/Acet 5/325 mg TABLET PO PRN ×2 (17:14→23:12)
[2021-10-28] MEDS: Cefepime HCl 2,000 MG in 0.9 % Sodium Chloride 10 ML IVP SCH (21:00)
[2021-10-29 06:01] LABS: Basophils % 0.1 %; Hematocrit 31.7 % (35.3-44.9); Hemoglobin 10.2 g/dL (11.5-15.4); Immature Granulocytes % 1.1 % (0-4); Lymphocytes # 1.1 K/mcL (0.6-4.6); Lymphocytes % 6.4 %; Mean Corpuscular HGB Conc 32.2 g/dL (31.6-35.5); Mean Corpuscular Hemoglobin 29.4 pg (28.0-33.3); Mean Corpuscular Volume 91.4 fL (83.0-100.0); Mean Platelet Volume 11.4 fL (9.4-12.4); Monocytes # 1.2 K/mcL (0.0-1.3); Monocytes % 6.8 %; Neutrophils # 15.3 K/mcL (1.6-8.9); Platelet Count 239 K/mcL (140-400); Red Blood Count 3.47 M/mcL (3.82-4.97); Red Cell Distribution Width 13.2 % (11.5-14.5); Segmented Neutrophils % 85.6 %; White Blood Count 17.9 K/mcL (4.3-11.1)
[2021-10-29 06:20] LABS: Calcium 8.4 mg/dL (8.6-10.3); Potassium 4.9 mEq/L (3.5-5.1)
[2021-10-29] MEDS: MetroNIDAZOLE 500 MG/100 ML 500 MG/100 ML BAG IVPB SCH ×3 (06:36→17:50)
[2021-10-29] MEDS: *HR* HYDROcodone/Acet 5/325 mg TABLET PO PRN ×2 (08:36→22:17)
[2021-10-29] MEDS: Sennosides/Docusate Sodium TABLET PO SCH ×2 (08:37→22:17)
[2021-10-29] MEDS: Cefepime HCl 2,000 MG in 0.9 % Sodium Chloride 10 ML IVP SCH ×2 (08:38→22:17)
[2021-10-29] MEDS ORDERED: Vancomycin 1,500 MG/265 ML IV.SOLN IVPB ONE (08:45)
[2021-10-29] MEDS: Ringers Solution, Lactated 1,000 ML IVC SCH (11:10)
[2021-10-29] MEDS: Vancomycin 1,500 MG/265 ML IV.SOLN IVPB SCH (11:11)
[2021-10-29] MEDS: *HR* Heparin 5,000 UNIT/ML VIAL SQ SCH (22:17)
[2021-10-30] MEDS: MetroNIDAZOLE 500 MG/100 ML 500 MG/100 ML BAG IVPB SCH ×5 (00:15→23:55)
[2021-10-30] MEDS ORDERED: Acetaminophen 325 MG TABLET PO ONE (00:16)
[2021-10-30] MEDS: Ringers Solution, Lactated 1,000 ML IVC SCH ×4 (00:16→23:57)
[2021-10-30 02:59] LABS: Hematocrit 29.8 % (35.3-44.9); Hemoglobin 9.5 g/dL (11.5-15.4); Mean Corpuscular HGB Conc 31.9 g/dL (31.6-35.5); Mean Corpuscular Hemoglobin 29.1 pg (28.0-33.3); Mean Corpuscular Volume 91.1 fL (83.0-100.0); Platelet Count 274 K/mcL (140-400); Red Blood Count 3.27 M/mcL (3.82-4.97); Red Cell Distribution Width 13.3 % (11.5-14.5); White Blood Count 14.1 K/mcL (4.3-11.1)
[2021-10-30 03:19] LABS: Calcium 7.9 mg/dL (8.6-10.3); Potassium 3.9 mEq/L (3.5-5.1)
[2021-10-30] MEDS: *HR* Heparin 5,000 UNIT/ML VIAL SQ SCH ×3 (05:50→19:29)
[2021-10-30] MEDS: *HR* HYDROcodone/Acet 5/325 mg TABLET PO PRN (05:51)
[2021-10-30] MEDS: Vancomycin 1,500 MG/265 ML IV.SOLN IVPB SCH (10:22)
[2021-10-30] MEDS: Sennosides/Docusate Sodium TABLET PO SCH ×2 (10:24→19:26)
[2021-10-30] MEDS: Cefepime HCl 2,000 MG in 0.9 % Sodium Chloride 10 ML IVP SCH ×2 (10:25→19:26)
[2021-10-30] MEDS ORDERED: lisinopriL 5 MG TABLET PO SCH (13:00)
[2021-10-30] MEDS ORDERED: polyethylene glycoL 3350 17 GM POWD.PACK PO PRN (13:20)
[2021-10-30] MEDS: *HR* OxyCODONE/APAP 5/325 TABLET PO PRN ×2 (13:49→19:26)
[2021-10-30 14:01] LABS: Uric Acid 5.3 mg/dL (2.3-7.6)
[2021-10-30] MEDS: Metoprolol XL (24 HR) Succ 25 MG TAB.ER.24H PO SCH (14:03)
[2021-10-30] MEDS: Spironolactone 25 MG TABLET PO SCH (14:04)
[2021-10-30] MEDS: Aspirin 81 MG TAB.CHEW PO SCH (14:04)
[2021-10-30] MEDS: Lactobacillus 1 EACH CAP.SPRINK PO SCH (14:04)
[2021-10-30 16:42] LABS: Bacteria,Urine Few per hpf (None-Few); Bilirubin,Urine Negative (Negative); Blood,Urine Negative (Negative); Clarity,Urine Clear (Clear); Color,Urine Light-Yellow (Yellow); Glucose,Urine (UA) 30 mg/dL (Normal); Ketones,Urine Negative (Negative); Leukocyte Esterase,Urine Negative (Negative); Mucus,Urine Few per lpf (None-Few); Nitrite,Urine Negative (Negative); Protein,Urine Negative (Neg-Trace); RBC,Urine 0-3 per hpf (0-3); Specific Gravity,Urine 1.013 (1.010-1.025); Squamous Epithelial Cell,Urine Few per hpf (None-Few); Urobilinogen,Urine Normal (Normal); WBC,Urine 0-3 per hpf (0-3)
[2021-10-31] MEDS: *HR* Heparin 5,000 UNIT/ML VIAL SQ SCH (05:28)
[2021-10-31] MEDS: MetroNIDAZOLE 500 MG/100 ML 500 MG/100 ML BAG IVPB SCH ×2 (05:28→13:56)
[2021-10-31 06:19] LABS: Hematocrit 32.2 % (35.3-44.9); Hemoglobin 10.3 g/dL (11.5-15.4); Mean Corpuscular Hemoglobin 29.5 pg (28.0-33.3); Mean Corpuscular Volume 92.3 fL (83.0-100.0); Mean Platelet Volume 9.7 fL (9.4-12.4); Platelet Count 304 K/mcL (140-400); Red Blood Count 3.49 M/mcL (3.82-4.97); Red Cell Distribution Width 13.6 % (11.5-14.5); White Blood Count 9.1 K/mcL (4.3-11.1)
[2021-10-31 07:18] LABS: Calcium 8.5 mg/dL (8.6-10.3); Potassium 4.1 mEq/L (3.5-5.1)
[2021-10-31 08:34] VITALS: BP 151/69; PULSE 66; TEMP 97.6; O2SAT 91
[2021-10-31] MEDS: Metoprolol XL (24 HR) Succ 25 MG TAB.ER.24H PO SCH (09:56)
[2021-10-31] MEDS: Aspirin 81 MG TAB.CHEW PO SCH (09:56)
[2021-10-31] MEDS: Spironolactone 25 MG TABLET PO SCH (09:56)
[2021-10-31] MEDS: *HR* OxyCODONE/APAP 5/325 TABLET PO PRN (09:57)
[2021-10-31] MEDS: Lactobacillus 1 EACH CAP.SPRINK PO SCH (09:57)
[2021-10-31] MEDS: Cefepime HCl 2,000 MG in 0.9 % Sodium Chloride 10 ML IVP SCH (09:57)
[2021-10-31] MEDS: Sennosides/Docusate Sodium TABLET PO SCH (09:58)
[2021-10-31] MEDS ORDERED: Ondansetron 4 MG/2 ML VIAL IVP PRN (13:25)
[2021-10-31] MEDS: Ringers Solution, Lactated 1,000 ML IVC SCH (13:55)
== END 2021-10-31 15:10 | disposition home health service (06) | DRG 345 ==
LOC: EMEROOARM 14:36 → 3BNU 14:36 → SUATTDRO 22:59 → 3BNU 23:50 → SUATTDRO 10-28 14:49
PROVIDERS: ADMIT Internal Medicine; ATTEND Internal Medicine